=== PATIENT | male | born 1985 ===

== ENCOUNTER 2018-04-04 23:03 | Emergency (ER) | payer BC, OTHER ==
[2018-04-04 23:14] VITALS: BP 140/83; PULSE 92; RESP 15; TEMP 98.4; O2SAT 99
[2018-04-04] MEDS ORDERED: Absorbable Gelatin Sponge Size 12-7 TP STA (23:20)
--- NOTE | 2018-04-04 23:23 | ED PDOC ---
Upper Extremity Pain/Injury Time Seen by Provider: 04/04/18 23:15 Chief Complaint (Nursing): Abnormal Skin Integrity History Per: Patient Additional Complaint(s): Pt. states earlier today he was using a sandrine and accidentally cut his L 5th digit. Denies numbness, tingling, other injury. Past Medical History Reviewed: Historical Data, Nursing Documentation, Vital Signs Vital Signs: Last Vital Signs Temp 98.4 F 04/04/18 23:10 Pulse 92 H 04/04/18 23:10 Resp 15 04/04/18 23:10 BP 140/83 04/04/18 23:10 Pulse Ox 99 04/04/18 23:10 - Medical History PMH: No Chronic Diseases - Family History Family History: States: No Known Family Hx - Allergies Allergies/Adverse Reactions: Allergies Allergy/AdvReac Type Severity Reaction Status Date / Time No Known Allergies Allergy Verified 04/04/18 23:13 Review of Systems ROS Statement: Except As Marked, All Systems Reviewed And Found Negative Physical Exam - Physical Exam Appears: Positive for: Well, Non-toxic, No Acute Distress Skin: Positive for: Normal Color, Warm. Negative for: Rash Eye Exam: Positive for: Normal appearance Pulses-Radial (L): 2+ Pulses-Radial (R): 2+ Extremity: Positive for: Other (L 5th digit on distal phalanx with superficial skin avulsion; FROM actively of L 5th digit; L 5th digit nail is intact) - ECG O2 Sat by Pulse Oximetry: 99 - Progress ED Course And Treament: Wound irrigated with NS. Gelfoam dressing applied. DSD applied. Bleeding controlled. Tetanus is UTD. Disposition - Clinical Impression Clinical Impression: Skin avulsion - Patient ED Disposition Is Patient to be Admitted: No - Disposition Referrals: Larissa Galo [place] [Outside] Disposition: Routine/Home Disposition Time: 23:21 Condition: STABLE Additional Instructions: FOLLOW UP WITH YOUR DOCTOR FOR FURTHER EVALUATION RETURN TO ED IMMEDIATELY IF SYMPTOMS WORSEN MARILUZ DEMPSEY, thank you for letting us take care of you today. Your provider was Jose Angel Mathis MD and you were treated for LT FINGER LACERATION. The emergency medical care you received today was directed at your acute symptoms. If you were prescribed any medication, please fill it and take as directed. It may take several days for your symptoms to resolve. Return to the Emergency Department if your symptoms worsen, do not improve, or if you have any other problems. Please contact your doctor or call one of the physicians/clinics you have been referred to that are listed on the Patient Visit Information form that is included in your discharge packet. Bring any paperwork you were given at discharge with you along with any medications you are taking to your follow up visit. Our treatment cannot replace ongoing medical care by a primary care provider outside of the emergency department. Thank you for allowing the [facility] team to be part of your care today. If you had an X-Ray or CT scan: A Radiologist will review the ED reading if any change in treatment is needed we will contact you. If you had a blood, urine, or wound culture: It will take several days for the results, if any change in treatment is needed we will contact you. If you had an STI test: It will take 48 hours for the results. Please call after 1 week if you have not heard back. Instructions: Wound Care (DC) Forms: [employer] (Portuguese)
== END 2018-04-04 23:41 | disposition home or self-care (01) ==
LOC: H.ER 23:03
DX: S61.207A Unspecified open wound of left little finger without damage to nail, initial encounter (principal); W45.8XXA Other foreign body or object entering through skin, initial encounter; Y93.G1 Activity, food preparation and clean up